=== PATIENT | male | born 1985 | race Caucasian/White ===

== ENCOUNTER 2018-05-14 00:29 | Emergency (ER) | payer OTHER ==
[~2018-05-14] VITALS: Ht 175.3 cm; Wt 85.0 kg
[2018-05-14 00:31] VITALS: BP 133/81
[2018-05-14] MEDS ORDERED: LIDOcaine 1% w/epiNEPHrine 1:200,000 30ml vial IM ONE ×2 (01:10)
[2018-05-14] MEDS ORDERED: HYDROcodone/acetaminophen 10/325mg tab PO ONE (01:10)
[2018-05-14] MEDS ORDERED: acetaminophen 325mg tablet PO ONE (01:35)
[2018-05-14] MEDS ORDERED: TETanus/Pertussis (Acell)/Diphther VAC/PF (Tdap-Adult) 0.5ml syringe IM ONE (01:40)
--- NOTE | 2018-05-14 01:52 | NUR ---
AT BEDSIDE, SUTURING.
[2018-05-14] MEDS ORDERED: ondansetron 4mg rapidly disintigrating tab PO ONE (02:00)
[2018-05-14] MEDS ORDERED: HYDR-4353 PO (02:01)
[2018-05-14] MEDS ORDERED: ONDA4TAB6 PO (02:01)
== END 2018-05-14 02:37 | disposition home or self-care (01) ==
LOC: ER 00:29
DX: S01.81XA Laceration without foreign body of other part of head, initial encounter (principal); F17.200 Nicotine dependence, unspecified, uncomplicated; Z98.890 Other specified postprocedural states; W01.198A Fall on same level from slipping, tripping and stumbling with subsequent striking against other object, initial encounter; Y93.01 Activity, walking, marching and hiking; Y92.89 Other specified places as the place of occurrence of the external cause; Y99.9 Unspecified external cause status
CPT/HCPCS: 12013; 90471; 90715; 99283; J3490

== ENCOUNTER 2020-12-28 23:08 | Emergency (ER) | payer MEDICAID, OTHER ==
[~2020-12-28] VITALS: Ht 177.8 cm; Wt 89.1 kg
[~2020-12-28 23:08] MED LIST: ONDA4TAB6 PO
[2020-12-28 23:23] VITALS: BP 154/107
[2020-12-28] MEDS ORDERED: TETanus/Pertussis (Acell)/Diphther VAC/PF (Tdap-Adult) 0.5ml syringe IMVAC ONE (23:35)
== END 2020-12-28 23:53 ==
LOC: ER 23:08
DX: S80.211A Abrasion, right knee, initial encounter (principal); S80.212A Abrasion, left knee, initial encounter; S60.414A Abrasion of right ring finger, initial encounter; Z98.890 Other specified postprocedural states; Z72.89 Other problems related to lifestyle; Z79.899 Other long term (current) drug therapy; Z20.3 Contact with and (suspected) exposure to rabies; V87.7XXA Person injured in collision between other specified motor vehicles (traffic), initial encounter; Y93.89 Activity, other specified; Y92.89 Other specified places as the place of occurrence of the external cause; Y99.8 Other external cause status
CPT/HCPCS: 90471; 90715; 99283

== ENCOUNTER 2024-04-12 18:11 | Inpatient (IN) | payer MEDICAID ==
[~2024-04-12] VITALS: Ht 175.3 cm; Wt 101.0 kg
[2024-04-12 19:20] LABS: BASOPHILS % (AUTO) 0.4 % (0-1); EOSINOPHILS # (AUTO) 0.4 X10'3 (0-0.9); EOSINOPHILS % (AUTO) 3.3 % (0-6); HEMATOCRIT 46.6 % (42.0-52.0); HEMOGLOBIN 15.5 g/dl (14.0-17.9); LYMPHOCYTES # (AUTO) 1.9 X10'3 (1.1-4.8); LYMPHOCYTES % (AUTO) 16.9 % (21-51); MEAN CORPUSCULAR HEMOGLOBIN 31.5 PG (27.0-31.0); MEAN CORPUSCULAR HGB CONC 33.2 g/dL (33.0-36.5); MEAN CORPUSCULAR VOLUME 94.9 FL (78-98); MEAN PLATELET VOLUME 8.8 FL (7.4-10.4); MONOCYTES # (AUTO) 0.6 X10'3 (0-0.9); MONOCYTES % (AUTO) 5.5 % (2-12); NEUTROPHILS # (AUTO) 8.5 X10'3 (1.8-7.7); NEUTROPHILS % (AUTO) 73.9 % (42-75); PLATELET COUNT 231 X10'3 (140-440); RED BLOOD COUNT 4.91 X10'6 (4.70-6.10); RED CELL DISTRIBUTION WIDTH 13.3 % (11.5-14.5); WHITE BLOOD COUNT 11.5 X10'3 (4.5-11.0)
[2024-04-12 19:39] LABS: ALBUMIN 3.7 G/DL (3.4-5.0); ANION GAP 8 (8-16); BLOOD UREA NITROGEN 10 MG/DL (7-18); CALCIUM 8.7 MG/DL (8.5-10.1); CHLORIDE 106 MMOL/L (99-107); CREATININE 0.91 MG/DL (0.60-1.10); GLUCOSE 99 MG/DL (70-104); SODIUM 141 MMOL/L (135-145); TOTAL CARBON DIOXIDE 26.6 MMOL/L (24-32); eCRCL 111 ML/MIN; eGFR > 90 ML/MIN
[2024-04-12] MEDS ORDERED: iohexol 300mg/ml 100ml inj. ONE (20:22)
[2024-04-12 21:42] LABS: BILIRUBIN,URINE NEGATIVE (Neg); CLARITY,URINE CLEAR (Clear); COLOR,URINE YELLOW (Yellow); GLUCOSE, URINE NEGATIVE (Neg); KETONES,URINE NEGATIVE (Neg); LEUKOCYTE ESTERASE ,URINE NEGATIVE (Neg); NITRITES, URINE NEGATIVE (Neg); OCCULT BLOOD,URINE NEGATIVE (Neg); PH,URINE 6.5 (4.8-8.0); PROTEIN,URINE NEGATIVE (Neg); UROBILINOGEN,URINE 0.2 E.U/dL (0.2-1.0)
[2024-04-12 21:43] LABS: UA COLLECTION TYPE CLN CATCH MIDSTREAM
[2024-04-12] MEDS: HYDROcodone/acetaminophen 10/325mg tab PO ONE (21:54)
[2024-04-12] MEDS: ondansetron/PF 4mg/2ml inj IV ONE (23:28)
[2024-04-12] MEDS: morphine 4 MG/ML inj SYRINge IV ONE (23:29)
[2024-04-13] VITALS (17 sets, daily range): BP systolic 100–133; BP diastolic 53–86; PULSE 67–89; RESP 12–23; TEMP 98.1–99.3; O2SAT 94–98
[2024-04-13] MEDS ORDERED: ondansetron/PF 4mg/2ml inj IV PRN ×3 (00:10→17:25)
[2024-04-13] MEDS ORDERED: mag hydrox/Alum hydrox/simeth 30ml oral suspension PO PRN (00:10)
[2024-04-13] MEDS ORDERED: magnesium sulf-water 2g/50mL 50 ML IV PRN (00:10)
[2024-04-13] MEDS ORDERED: magnesium Cl slow-release 64mg tablet PO PRN (00:10)
[2024-04-13] MEDS ORDERED: potassium Cl 40MEQ/1/2NS 520ml 520 ML IV PRN (00:10)
[2024-04-13] MEDS ORDERED: acetaminophen 325mg tablet PO PRN (00:10)
[2024-04-13] MEDS ORDERED: magnesium sulf-water 4G/100mL 100 ML IV PRN (00:10)
[2024-04-13] MEDS ORDERED: morphine 2 MG/ML inj. syringe IV PRN ×2 (00:10→17:00)
[2024-04-13] MEDS ORDERED: potassium Cl 20 mEq SR tablet PO PRN ×2 (00:10)
[2024-04-13] MEDS: normal saline 1000ml 1,000 ML IV SCH (00:24)
[2024-04-13] MEDS ORDERED: IBUP-1985 PO (00:48)
[2024-04-13] MEDS: piperacillin/tazo 4.5gm/100ml 100 ML IV SCH (01:53)
[2024-04-13] MEDS: morphine 2 MG/ML inj. syringe IV PRN (02:02)
[2024-04-13 03:07] LABS: MAGNESIUM 1.9 MG/DL (1.5-2.4); POTASSIUM 3.6 MMOL/L (3.5-5.1)
[2024-04-13] MEDS: K and/or MAG REPLACEMENT MC SCH (08:00)
[2024-04-13] MEDS: lactobacillus rhamnosus 10,000 MMU CELLS/CAPSULE PO SCH (08:00)
[2024-04-13] MEDS ORDERED: piperacillin/tazo 4.5gm/100ml 100 ML IV SCH (08:00)
[2024-04-13] MEDS ORDERED: sevoflurane 250ml liquid IH ONE (16:57)
[2024-04-13] MEDS ORDERED: midazolam 1 mg/ML 2ml injection ONE (16:59)
[2024-04-13] MEDS ORDERED: morphine 4 MG/ML inj SYRINge IV PRN (17:00)
[2024-04-13] MEDS ORDERED: labetalol 20mg/4ml (5mg/ml) syringe IV PRN (17:00)
[2024-04-13] MEDS ORDERED: meperidine/PF 25mg/ml syringe IV PRN ×3 (17:00)
[2024-04-13] MEDS ORDERED: proCHLORperazine 10 MG/2 ml inj IV PRN (17:00)
[2024-04-13] MEDS ORDERED: ringers solution, lacted 1,000 ML IV SCH (17:00)
[2024-04-13] MEDS ORDERED: acetaminophen 1,000mg/100ml IV 100 ML IV PRN (17:00)
[2024-04-13] MEDS ORDERED: fentaNYL/PF 50MCG/1 ML 2ML syringe ONE (17:00)
[2024-04-13] MEDS ORDERED: hydrALAZINE 20mg/ml inj. IV PRN (17:00)
[2024-04-13] MEDS ORDERED: ondansetron/PF 4mg/2ml inj ONE (17:10)
[2024-04-13] MEDS ORDERED: dexamethasone sod phosphate 4mg/ml inj. ONE (17:10)
[2024-04-13] MEDS ORDERED: propofol inj 20 ML IV ONE (17:11)
[2024-04-13] MEDS ORDERED: LIDOcaine 2% (20mg/ml) 5ml vial ONE (17:11)
[2024-04-13] MEDS ORDERED: ceFAZolin 1000mg inj ONE ×2 (17:14)
[2024-04-13] MEDS ORDERED: naloxone 0.4 mg/ml inj IV PRN (17:25)
[2024-04-13] MEDS ORDERED: meperidine/PF 100mg/ml syringe IV PRN (17:56)
[2024-04-13] MEDS: meperidine/PF 100mg/ml syringe IV PRN ×2 (18:00→18:28)
[2024-04-13] MEDS: HYDROcodone/acetaminophen 10/325mg tab PO PRN (21:27)
[2024-04-14] MEDS: ceFOXitin 1 GM/D5W 50mL IVPB 50 ML IV SCH (01:08)
[2024-04-14 02:00] VITALS: BP 117/61; PULSE 68; RESP 17; TEMP 98.2; O2SAT 96
[2024-04-14 05:25] LABS: BASOPHILS % (AUTO) 0.4 % (0-1); EOSINOPHILS % (AUTO) 0.1 % (0-6); HEMATOCRIT 43.8 % (42.0-52.0); HEMOGLOBIN 14.4 g/dl (14.0-17.9); LYMPHOCYTES # (AUTO) 0.9 X10'3 (1.1-4.8); LYMPHOCYTES % (AUTO) 8.4 % (21-51); MEAN CORPUSCULAR HGB CONC 32.8 g/dL (33.0-36.5); MEAN CORPUSCULAR VOLUME 94.6 FL (78-98); MEAN PLATELET VOLUME 8.6 FL (7.4-10.4); MONOCYTES # (AUTO) 0.6 X10'3 (0-0.9); NEUTROPHILS # (AUTO) 9.6 X10'3 (1.8-7.7); NEUTROPHILS % (AUTO) 86.1 % (42-75); PLATELET COUNT 219 X10'3 (140-440); RED BLOOD COUNT 4.63 X10'6 (4.70-6.10); RED CELL DISTRIBUTION WIDTH 13.1 % (11.5-14.5); WHITE BLOOD COUNT 11.1 X10'3 (4.5-11.0)
[2024-04-14 05:52] LABS: ALANINE AMINOTRANSFERASE 18 U/L (12-78); ALBUMIN/GLOBULIN RATIO 0.9 (1.1-1.5); ALKALINE PHOSPHATASE 73 IU/L (46-116); ANION GAP 5 (8-16); ASPARTATE AMINO TRANSFERASE 13 U/L (10-37); BILIRUBIN,TOTAL 0.5 MG/DL (0.1-1.0); BLOOD UREA NITROGEN 8 MG/DL (7-18); BUN/CREATININE RATIO 9.8 (10.0-20.0); CALCIUM 8.3 MG/DL (8.5-10.1); CHLORIDE 105 MMOL/L (99-107); CREATININE 0.82 MG/DL (0.60-1.10); GLUCOSE 137 MG/DL (70-104); MAGNESIUM 1.8 MG/DL (1.5-2.4); POTASSIUM 4.8 MMOL/L (3.5-5.1); SODIUM 138 MMOL/L (135-145); TOTAL CARBON DIOXIDE 27.8 MMOL/L (24-32); TOTAL PROTEIN 6.2 G/DL (6.4-8.2); eCRCL 123 ML/MIN; eGFR > 90 ML/MIN
[2024-04-14 06:00] VITALS: BP 104/53; PULSE 64; RESP 14; TEMP 97.7; O2SAT 96
[2024-04-14 08:15] VITALS: RESP 14; O2SAT 96
[2024-04-14 10:00] VITALS: BP 116/72; PULSE 66; RESP 19; TEMP 97.8; O2SAT 97
[2024-04-14] MEDS: magnesium hydroxide 30ml (MOM) UD suspension PO PRN (11:41)
[2024-04-14] MEDS ORDERED: HYDROcodone/acetaminophen 5mg/325mg tablet PO PRN (13:20)
[2024-04-14] MEDS ORDERED: ACET-1008 PO (14:08)
[2024-04-14] MEDS ORDERED: PANT40TA54 PO (14:10)
[2024-04-14] MEDS ORDERED: METR-159 PO (14:10)
[2024-04-14] MEDS ORDERED: DOCU-148 PO (14:14)
[2024-04-14] MEDS ORDERED: CIPR-259 PO (19:59)
== END 2024-04-14 18:17 | disposition home or self-care (01) | DRG 226 ==
LOC: ER 18:12 → ED HOLD 04-13 00:11 → ORTHO 4S 04-13 07:50
PROVIDERS: ADMIT Internal Medicine Sleep Medicine; ATTEND Internal Medicine
PROC: BW211ZZ Computerized Tomography (CT Scan) of Abdomen and Pelvis using Low Osmolar Contrast (ICD-10-PCS; 2024-04-12)
PROC: 0D9P0ZZ Drainage of Rectum, Open Approach (ICD-10-PCS; principal; 2024-04-13 16:57)
DX: K61.2 Anorectal abscess (principal); K62.89 Other specified diseases of anus and rectum; Z72.0 Tobacco use; Z93.3 Colostomy status
CPT/HCPCS: 36415; 71045; 74177; 80048; 80053; 81003; 82948; 83605; 83735; 84132; 84145; 85025; 87040; 87070; 87075; 87077; 87081; 87186; 96374; 96375; 99285; A4618; A6253; A6407; A6449; A7000; G0378; J0690; J0694; J1100; J2003; J2175; J2250; J2270; J2405; J2543; J2704; J3010; J7030; J7120; Q9967